=== PATIENT | male | born 2000 | race Caucasian/White ===

== ENCOUNTER 2024-01-05 16:07 | Emergency (ER) | payer BC, SELFPAY ==
--- NOTE | ~2024-01-05 | XR_ITS ---
EXAMINATION: XR CHEST CLINICAL INFORMATION: Chest pain, some COMPARISON: None available. TECHNIQUE: 2 views of the chest were obtained. FINDINGS: No significant abnormality is noted involving the heart, lungs, mediastinum, bony thorax or soft tissues. XR/XR chest 2V IMPRESSION: Unremarkable chest examination. Electronically signed by: Efren Thorne MD 01/05/2024 06:19 PM EDT RP
--- NOTE | 2024-01-05 16:08 | ECG_ITS ---
Test Reason : CHEST PAIN Blood Pressure : / mmHG Vent. Rate : 083 BPM Atrial Rate : 083 BPM P-R Int : 152 ms QRS Dur : 084 ms QT Int : 364 ms P-R-T Axes : 044 027 011 degrees QTc Int : 427 ms Normal sinus rhythm Normal ECG No previous ECGs available Referred By: Generic ED Physician Electronically Signed By:KITTY LUONG
[2024-01-05 16:14] VITALS: BP 141/86; PULSE 85; RESP 16; TEMP 36.9; O2SAT 99; BMI 37.7
--- NOTE | 2024-01-05 16:14 | ED_ITS ---
HPI - Chest Pain General Chief Complaint: Chest Pain Stated Complaint: chest pain Time Seen by Provider: 01/05/24 16:50 Source: patient Mode of arrival: ambulatory Limitations: no limitations History of Present Illness HPI narrative: Patient is a 23-year-old male who presents emergency department for evaluation of Chest pain described as ?a little bit of discomfort? with shortness of breath earlier today. Has had similar symptoms in the past earlier this year, he had very elevated blood pressure at that time. He is not on any antihypertensives. Pain currently localized to the substernal region described as a tightness with shortness of breath and dizziness, This episode started 1 - 1.5 hours ago. Denies recent URI symptoms, fevers, chills. Denies lower extremity swelling redness or pain. Denies history of VTE/malignancy. Related Data Allergies Allergy/AdvReac Type Severity Reaction Status Date / Time No Known Allergies Allergy Verified 01/05/24 16:16 [No Known Allergies*] Review of Systems 2 Review of Systems: Yes all other systems are reviewed and are negative PMFSH Past Medical History Attestation statement: The following information was validated with the patient. Source: old records reviewed Social History Social History Smoked in Last 30 Days: No Use of substances other than those prescribed or required for medical reasons: No Advance Directives: No Advance Directives Information Provided: No Do you have a plan to hurt others: No Plan Physical Exam 2 Vital Signs: Vital Signs: Last Vital Signs Temp 98.5 F 01/05/24 18:00 Pulse 76 01/05/24 18:00 Resp 20 01/05/24 18:00 BP 128/64 01/05/24 18:00 Pulse Ox 97 01/05/24 18:00 O2 Del Method Room Air 01/05/24 18:00 BMI result Body Mass Index 37.7 Appearance: Alert.?Oriented to person, place and time. No acute distress.?Normal affect. Eyes: Pupils equal, round and reactive to light.? ENT: Pharynx normal.?? Neck: Normal inspection.? Neck supple.?? CVS: Heart sounds normal. Normal heart rate and rhythm.? Pulses normal.?? Respiratory: No respiratory distress.? Lung sounds clear to auscultation bilaterally?? Abdomen: Soft and non-tender. Normoactive bowel sounds. ?? Skin: Skin warm and dry.? Normal skin color.? ?? Extremities: No lower extremity edema.? No calf ttp? Neuro: Moves all extremities spontaneously. Sensation intact bilaterally. CN II- XII intact. No focal neuro deficits. Ambulates with normal steady gait. Medications Administered Discontinued Medications Generic Name Dose Route Start Last Admin Trade Name Farrukh PRN Reason Stop Dose Admin Ketorolac Tromethamine 15 mg 01/05/24 17:07 01/05/24 17:18 Ketorolac Tromethamine 15 Mg/Ml Vial IM 01/05/24 17:08 15 mg ONCE ONE Administration Medical Decision Making Medical Decision Making [facility] Narrative: Patient is a 23-year-old male who presents emergency department for evaluation of chest pain with associated dizziness and shortness of breath as per HPI. Overall he appears well, nontoxic, afebrile. He is without tachycardia tachypnea or hypoxia. He is speaking clear full sentences. LS CTA. Pain is non reproducible, at this time has improved since its onset 60-90 minutes ago but remains present. Endorses a history of elevated blood pressure reading in the past but states he has not been formally diagnosed with hypertension and he is not prescribed any antihypertensives. Will obtain CBC to evaluate for leukocytosis/ anemia, CMP and lipase to evaluate for abnormal electrolytes /abnormal renal function/ abnormal hepatic/biliary function, EKG and troponin to evaluate for ischemia/ACS. Chest x-ray to evaluate for consolidation/ infiltrate/ mass/ pulmonary congestion and Urinalysis. Differential Diagnosis Differential Diagnoses: The differential diagnosis associated with the presentation includes (See narrative above) Admission/Observation Consideration of admission/observation: Escalation of care including admission/observation considered Lab Data [facility] Lab Attestation statement: I reviewed the patient's lab results. CBC is without leukocytosis anemia or thrombocytopenia. No electrolyte derangement. No SOURAV. LFTs and lipase within normal range. High sensitive troponin below detectable limits, EKG without acute ischemic findings unlikely ACS. Viral panel negative. D-dimer nondetectable, unlikely pulmonary embolism 01/05/24 16:23 01/05/24 16:23 Labs: Lab Results 01/05/24 Range/Units 16:23 WBC 9.3 (4.8-10.8) X10*3/uL RBC 5.54 (4.60-5.80) X10*6/uL Hgb 15.4 (14.0-18.0) g/dl Hct 44.5 (42.0-52.0) % MCV 80.3 (80.0-98.0) fL MCH 27.8 (27.0-33.0) pg MCHC 34.6 (31.0-36.0) g/dl RDW 14.1 (11.0-16.0) % Plt Count 354 (160-400) X10*3/uL MPV 9.7 (9.4-12.4) fL Immature Gran % (Auto) 0.3 (0.0-0.4) % Neut % (Auto) 69.9 (45-73) % Lymph % (Auto) 20.8 (20-40) % [place] % (Auto) 8.2 (2-11) % Eos % (Auto) 0.5 (0-4) % Baso % (Auto) 0.3 (0-2) % Lymph # (Auto) 1.9 (1.2-4.9) X10*3/uL [place] # (Auto) 0.8 (0.1-1.2) X10*3/uL Eos # (Auto) 0.1 (0.0-0.4) X10*3/uL Baso # (Auto) 0.0 (0.0-0.2) X10*3/uL Abs Immat Gran (auto) 0.03 (0.00-0.03) X10*3/uL Absolute Neuts (auto) 6.5 (2.0-8.3) x10*3/uL Absolute Nucleated RBC 0.000 (0.0-0.012) X10*3/uL Nucleated RBC % (auto) 0.0 (0.0-0.2) /100WBC PT 11.9 (11.1-13.3) SEC INR 1.0 (0.9-1.1) D-Dimer High Sensitivty < 150 NG/ML Sodium 142 (135-145) mmol/L Potassium 3.9 (3.3-5.1) mmol/L Chloride 106 (96-108) mmol/L Carbon Dioxide 27 (22-29) mmol/L Anion Gap 13 (12-20) BUN 10 (9-16) mg/dL Creatinine 0.95 (0.5-1.4) mg/dL Estim Creat Clear Calc 152.9 Estimated GFR > 60 Random Glucose 110 (60-115) mg/dL Calcium 10.0 (8.4-10.2) mg/dL Magnesium 2.0 (1.6-2.6) mg/dL Total Bilirubin 0.4 (0.0-1.0) mg/dL AST 24 (5-37) U/L ALT 46 H (0-40) U/L Alkaline Phosphatase 87 (39-117) U/L Troponin I High Sens < 2.7 (<3.5-35.0) ng/L Total Protein 7.4 (6.5-8.0) g/dL Albumin 4.6 (3.5-5.0) g/dL Lipase 15 (8-78) U/L Influenza Type A (PCR) NEGATIVE (Negative) Influenza Type B (PCR) NEGATIVE (Negative) RSV RNA Qual (PCR) NEGATIVE (Negative) SARS-CoV-2 RNA (RT-PCR) NEGATIVE (Negative) Independent Interpretation I performed an independent interpretation of an: EKG and Plain X-Ray (No infiltrate or consolidations) Interpretation: Rate: 83 Rhythm:? Normal sinus rhythm [place]:? Normal Normal P waves.? Normal KAPIL.?? Normal QRS complex.?? ST T wave :??No ST elevation, no ST depression, T-wave inversion lead III qTC: 427 prior studies:? No prior available for review The study has been interpreted contemporaneously by me. Radiology Impression Discussion of test interpretation with radiology: I have reviewed the radiologist's reading. Radiologist Impression: XR/XR chest 2V IMPRESSION: Unremarkable chest examination. External Record Review External record reviewed: Outpatient record Prescription Management I considered prescription management with: Pain Medication (Acetaminophen/ibuprofen) Discharge Plan Discharge Clinical Impression: Chest pain Patient Disposition: Home, Self-Care Instructions: Chest Pain (DC) Additional Instructions: You can take ibuprofen 200 mg, 3 tablets (600mg) every 6-8 hours as needed for pain, in addition to Tylenol 500 mg, 2 tablets (1,000mg) every 4-6 hours as needed for pain, but not to exceed 3 doses daily (3,000mg).? Follow-up with primary care doctor within 1-3 days. You may return back to emergency department any new or worsening symptoms or concerns. Print Language: Welsh
[2024-01-05 16:27] LABS: MANUAL DIFF FLAG NO
--- OUTSIDE RECORDS SUMMARY | 2024-01-05 16:27 | XMS_ITS | Continuity of Care Document ---
Author Organization [facility] Address [address] [place] [address]- Care Team Providers Care Housekeeper Name Role Phone Liu ISAACS, Suleiman Avila Primary Care Physician Encounter PSS Date(s): 10/10/19 - 10/17/19 [facility] [address] [place] [address]- [facility] Attending Physician: Sachi De León NP Allergies, Adverse Reactions, Alerts Substance Reaction Severity Status NKA Active Immunizations Given and Recorded Vaccine Date Status Refusal Reason Hepatitis A Pediatric Vaccine 10/10/19 Given Hepatitis A Pediatric Vaccine 10/07/18 Given meningococcal group B vaccine 1 10/07/18 Given meningococcal group B vaccine 2 10/04/17 Given Meningococcal Conjugate Vaccine 3 10/04/17 Given Meningococcal Conjugate Vaccine 4 09/04/12 Given Human Papillomavirus Vaccine 5 09/13/15 Given Human Papillomavirus Vaccine 6 08/17/14 Given tetanus/diphtheria/pertussis, acel(Tdap) 7 09/04/12 Given Varicella Virus Vaccine 08/01/05 Recorded Varicella Virus Vaccine 05/02/02 Recorded Measles/Mumps/Rubella Virus Vaccine 07/04/05 Recor ded Measles/Mumps/Rubella Virus Vaccine 05/02/02 Recor ded Poliovirus Vaccine, Inactivated 07/04/05 Recorded Poliovirus Vaccine, Inactivated 01 Recorded Poliovirus Vaccine, Inactivated 01 Recorded diphtheria/tetanus/pertussis, acel(DTaP) 07/04/05 Recorded diphtheria/tetanus/pertussis, acel(DTaP) 08/05/02 Recorded diphtheria/tetanus/pertussis, acel(DTaP) 03/21/02 Recorded diphtheria/tetanus/pertussis, acel(DTaP) 01 Recorded diphtheria/tetanus/pertussis, acel(DTaP) 01 Recorded pneumococcal 7-valent vaccine 05/02/02 Recorded pneumococcal 7-valent vaccine 03/21/02 Recorded pneumococcal 7-valent vaccine 01 Recorded haemophilus b conjugate (PRP-T) vaccine 05/02/02 R ecorded haemophilus b conjugate (PRP-T) vaccine 03/21/02 R ecorded haemophilus b conjugate (PRP-T) vaccine 01 R ecorded haemophilus b conjugate (PRP-T) vaccine 01 R ecorded hepatitis B pediatric vaccine 01 Recorded hepatitis B pediatric vaccine 01 Recorded hepatitis B pediatric vaccine 01 Recorded pneumococcal 13-valent vaccine 01 Recorded 1Result Comment: [id number] 05/2019 2Result Comment: [10/04/2017] Ordered by Jose Angel Vance MD 3Result Comment: [10/04/2017] Ordered by Jose Angel Vance MD 4Admin Note: VIS 02/17/11 GIVEN 5Result Comment: [09/13/2015] Ordered by Jose Angel Vance MD 6Result Comment: [08/17/2014] ordered by Jose Angel Vance M.D. 7Admin Note: VIS 05/30/11 given Vital Signs Most recent to oldest [Reference Range]: 1 Height 174.3 cm (10/10/19 9:46 AM) Weight 108.6 kg (10/10/19 9:46 AM) Pulse Rate [55-90 bpm] 80 bpm (10/10/19 9:46 AM) Body Mass Index [18.5-24.99] 35.75 *>HHI* (10/10/19 9:46 AM) Blood Pressure [71-110/30-71 mm Hg] 128/ 78mm Hg *H* (10/10/19 9:46 AM) Blood pressure sites Arm, left (10/10/19 9:46 AM) Dry Weight 108.6 kg (10/10/19 9:46 AM) Weight Obtained Via Standing scale (10/10/19 9:46 AM) Dry Weight Obtained Via Standing scale (10/10/19 9:46 AM) Social History Social History Type Response Smoking Status Never smoker; Tobacc o user in household: No entered on: 04/04/16 Sex
--- OUTSIDE RECORDS SUMMARY | 2024-01-05 16:27 | XMS_ITS | Continuity of Care Document ---
Author Organization [facility] [address] [place] [address]- Care Team Providers Care Poultry Culler Name Role Phone Liu ISAACS, Suleiman Avila Primary Care Physician [phone] Encounter PSS Date(s): 06/29/21 - 07/29/21 [facility] [address] [place] [address]- Attending Physician: Pinky ISAACS, Jose Angel Baldwin Allergies, Adverse Reactions, Alerts No Known Allergies Immunizations Given and Recorded Vaccine Date Status Refusal Reason SARS-CoV-2 (COVID-19) mRNA BNT-162b2 vac 06/30/20 Recorded SARS-CoV-2 (COVID-19) mRNA BNT-162b2 vac 06/09/20 Recorded Hepatitis A Pediatric Vaccine 10/10/19 Given Hepatitis [...] Vaccine, Inactivated 07/04/05 Recorded Poliovirus Vaccine, Inactivated 08/05/02 Recorded Poliovirus Vaccine, Inactivated 01 Recorded Poliovirus Vaccine, Inactivated 01 Recorded diphtheria/tetanus/pertussis, acel(DTaP) 07/04/05 Recorded diphtheria/tetanus/pertussis, acel(DTaP) 08/05/02 Recorded diphtheria/tetanus/pertussis, acel(DTaP) 03/21/02 Recorded diphtheria/tetanus/pertussis, acel(DTaP) 01 Recorded diphtheria/tetanus/pertussis, acel(DTaP) 01 Recorded Diphth/pertussis,acel/tetanus/polio 07/04/04 Recor ded pneumococcal 7-valent vaccine 05/02/02 Recorded pneumococcal 7-valent [...] pneumococcal 13-valent vaccine 01 Recorded 1Result Comment: [id number] 05/2019 2Result Comment: [10/04/2017] Ordered by Jose Angel Vance MD 3Result Comment: [10/04/2017] Ordered by Jose Angel Vance MD 4Admin Note: VIS 02/17/11 GIVEN 5Result Comment: [09/13/2015] Ordered by Jose Angel Vance MD 6Result Comment: [08/17/2014] ordered by Jose Angel Vance M.D. 7Admin Note: VIS 05/30/11 given Social History Social History Type Response Smoking Status Never smoker; Tobacc o user in household: No entered on: 04/04/16 Sex
--- OUTSIDE RECORDS SUMMARY | 2024-01-05 16:27 | XMS_ITS | Continuity of Care Document ---
Author Organization [facility] [address] [place] [address]- Care Team Providers Care Surgical Coder Name Role Phone Suleiman Hatfield MD Primary Care Physician Encounter PSS Date(s): 06/20/21 - 07/20/21 [facility] [place] [address] [place] [address]- Attending Physician: Suleiman Hatfield MD Allergies, Adverse Reactions, Alerts No Known Allergies [...] pneumococcal 13-valent vaccine 01 Recorded 1Result Comment: [id number] 05/2019 2Result Comment: [10/04/2017] Ordered by Jose [...]
[2024-01-05 16:28] LABS: Basophils Percent Auto 0.3 % (0-2); Eosinophils Absolute Auto 0.1 X10*3/uL (0.0-0.4); Eosinophils Percent Auto 0.5 % (0-4); Hematocrit 44.5 % (42.0-52.0); Hemoglobin 15.4 g/dl (14.0-18.0); Imm Gran Abs Auto 0.03 X10*3/uL (0.00-0.03); Imm Gran Pct Auto 0.3 % (0.0-0.4); Lymphocytes Absolute Auto 1.9 X10*3/uL (1.2-4.9); Lymphocytes Percent Auto 20.8 % (20-40); Mean Corpuscular HGB Conc 34.6 g/dl (31.0-36.0); Mean Corpuscular Hemoglobin 27.8 pg (27.0-33.0); Mean Corpuscular Volume 80.3 fL (80.0-98.0); Mean Platelet Volume 9.7 fL (9.4-12.4); Monocytes Absolute Auto 0.8 X10*3/uL (0.1-1.2); Monocytes Percent Auto 8.2 % (2-11); Neutrophils Absolute Auto 6.5 x10*3/uL (2.0-8.3); Neutrophils Percent Auto 69.9 % (45-73); Platelet Count 354 X10*3/uL (160-400); Red Blood Count 5.54 X10*6/uL (4.60-5.80); Red Cell Distribution Width 14.1 % (11.0-16.0); White Blood Count 9.3 X10*3/uL (4.8-10.8)
[2024-01-05 16:35] LABS: Prothrombin Time 11.9 SEC (11.1-13.3)
[2024-01-05 16:46] LABS: Alanine Aminotransferase 46 U/L (0-40); Albumin Level 4.6 g/dL (3.5-5.0); Alkaline Phosphatase 87 U/L (39-117); Anion Gap 13 (12-20); Aspartate Amino Transferase 24 U/L (5-37); Bilirubin Total 0.4 mg/dL (0.0-1.0); Blood Urea Nitrogen 10 mg/dL (9-16); Carbon Dioxide 27 mmol/L (22-29); Chloride 106 mmol/L (96-108); Creatinine Clr Calc Pharmacy 152.9; Estimated Glomerular Filt Rate > 60; Glucose Random 110 mg/dL (60-115); Lipase 15 U/L (8-78); Potassium 3.9 mmol/L (3.3-5.1); Sodium 142 mmol/L (135-145); Total Protein 7.4 g/dL (6.5-8.0)
[2024-01-05 16:54] LABS: Troponin-I High Sensitivity < 2.7 ng/L (<3.5-35.0)
[2024-01-05 17:07] LABS: Influenza A PCR NEGATIVE (Negative); Influenza B PCR NEGATIVE (Negative); Resp Syncy Virus RNA Qual PCR NEGATIVE (Negative); SARS COV2 PCR INHOUSE NEGATIVE (Negative)
[2024-01-05] MEDS: Ketorolac Tromethamine 15 MG/ML VIAL IM (17:18)
--- NOTE | 2024-01-05 17:21 | PC.NURSE ---
patient presents through external triage with cc of chest pain and shortness of breath that came on suddenly today. patient states the pain has since subsided and he rates it as a 3/10 but he got nervous when the pain wouldnt go away which prompted him to come in. patient VS WNL, denies any significant PMHx, denies any fevers chills, NVD or sick contacts. patient states the pain was substernal and did not radiate anywhere else, no pain to palpation. LSCTA, normoactive BS in all four quadrants, abdomen soft and non tender. patient medicated per JUL, returned from Xray. awaiting results at this time
[2024-01-05 17:32] LABS: D Dimer High Sensitivity < 150 NG/ML
[2024-01-05 18:00] VITALS: BP 128/64; PULSE 76; RESP 20; TEMP 36.9; O2SAT 97
[2024-01-05 18:35] VITALS: BP 128/64; PULSE 76; RESP 20; TEMP 36.9; O2SAT 97
== END 2024-01-05 18:38 | disposition home or self-care (01) ==
PROVIDERS: Nurse Practitioner Family; Emergency Provider Emergency Medicine Emergency Medical Services
DX: R07.9 Chest pain, unspecified (principal); R06.02 Shortness of breath; Z03.818 Encounter for observation for suspected exposure to other biological agents ruled out
CPT/HCPCS: 0241U; 36415; 71046; 80053; 83690; 83735; 84484; 85025; 85379; 85610; 93005; 96372; 99284; 99285; J1885

== ENCOUNTER 2024-02-25 15:00 | Emergency (ER) | payer OTHER, BC, SELFPAY ==
--- NOTE | ~2024-02-25 | XR_ITS ---
EXAMINATION: Left foot series. Left ankle series CLINICAL INFORMATION: Pain injury COMPARISON: X-ray left ankle June 2014 TECHNIQUE: 3 views of left foot and 2 additional views of the left ankle FINDINGS: Left ankle and foot: The bones joints and soft tissues are normal No fracture XR/XR foot LT min 3V IMPRESSION: Normal x-ray series of the left ankle and foot Electronically signed by: You Reyna MD 02/25/2024 04:58 PM EDT
--- NOTE | ~2024-02-25 | XR_ITS ---
EXAMINATION: Left foot series. Left ankle series CLINICAL INFORMATION: Pain injury COMPARISON: X-ray left ankle June 2014 TECHNIQUE: 3 views of left foot and 2 additional views of the left ankle FINDINGS: Left ankle and foot: The bones joints and soft tissues are normal No fracture XR/XR ankle LT min 3V IMPRESSION: Normal x-ray series of the left ankle and foot Electronically signed by: You Reyna MD 02/25/2024 04:58 PM EDT
[2024-02-25 15:13] VITALS: BP 132/68; PULSE 81; RESP 16; TEMP 36.5; O2SAT 97; BMI 36.1
--- NOTE | 2024-02-25 15:13 | ED.GENADULT ---
HPI - General Adult General Chief complaint: Extremity Injury, Lower Stated complaint: left foot inj Time Seen by Provider: 02/25/24 16:20 Source: patient Mode of arrival: ambulatory Limitations: no limitations History of Present Illness ED Provider: rudy [facility] narrative: Patient is a 23 yo male without significant PMH presents for left ankle and heel pain. 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 Denies any fall, no changes in ROM or sensation or temperature. States his pain was increasing since this am and he just wanted to make sure he didn't break anything. Denies numbness/tingling. Able to bear weight. complaint: left foot pain Onset (ago): hour(s) Location: left and lower extremity Radiation: non-radiation and extremity (ankle L) Exacerbating factors: movement Associated symptoms: denies other symptoms Treatments prior to arrival: none Related Data Allergies Allergy/AdvReac Type Severity Reaction Status Date / Time No Known Allergies Allergy Verified 02/25/24 15:14 [No Known Allergies*] Review of Systems Review of Systems: Yes all other systems are reviewed and are negative Constitutional: Constitutional: Reports as per [facility] Social History Social History Smoked in Last 30 Days: No Advance Directives: No Advance Directives Information Provided: No Physical Exam ED Vital Signs: Vital Signs - 24 hr 02/25/24 15:13 Temperature 97.7 F Pulse Rate 81 Respiratory Rate 16 Blood Pressure 132/68 Pulse Oximetry 97 Oxygen Delivery Method Room Air BMI result Body Mass Index 36.1 Appearance: Alert. Oriented X3. No acute distress. Head: normocephalic, atraumatic. Eyes: Pupils equal, round and reactive to light. ENT: Pharynx normal. No tonsillar swelling or exudate. Neck: Normal inspection. Neck supple. CVS: Normal heart rate and rhythm. Pulses normal. Respiratory: No respiratory distress. Breath sounds normal. Abdomen: Soft and nontender. +BS x4 Skin: Skin warm and dry. Normal skin color. Normal skin turgor. No rashes. Extremities: No lower extremity edema. No joint swelling. positive passive and active ROM, positive pedal and posterior tibial pulses, no achilles tenderness, negative Marina test Neuro/psych: Oriented X 3. No motor deficit. No sensory deficit. CN II-XII intact. Normal speech and cognition. Const General: cooperative, healthy appearing and no acute distress Orientation/consciousness: oriented to person, oriented to place, oriented to time and patient oriented x3 Limitations: no limitations HENMT Head: Yes normocephalic and Yes atraumatic Ears: external ears normal General nose exam: Normal external nose present Face and sinus: Yes face symmetric Mouth: oropharynx normal and moist mucous membranes Throat: Yes uvula midline Eyes Pupils: Equal, round and reactive pupils present Neck Neck: Yes normal visual inspection and Yes supple Resp Effort & Inspection: normal respiratory effort and able to speak in complete sentences Auscultation: clear to auscultation bilaterally Cardio Rate: regular rate Rhythm: regular rhythm Heart sounds: S1 normal heart sound present and S2 normal heart sound present GI Palpation (GI): Soft to palpation and nontender Auscultation: normoactive bowel sounds General: Yes no CVA tenderness Back/Spine/Pelvis Back: no CVA tenderness Skin General skin exam: elasticity normal and turgor normal Neuro General: oriented to person, oriented to place, oriented to time, patient oriented x3, moves all extremities, no focal motor deficits and CN's II-XI intact bilaterally Cranial nerves: Yes Equal, round and reactive pupils present Cognition (Neuro): normal cognition Extrem General: Yes full ROM, Yes no pedal edema and Yes no calf tenderness Right lower extremity: normal to inspection and normal capillary refill Left lower extremity: normal to inspection, normal capillary refill and ankle Details: normal to inspection, tenderness, no edema and normal ROM Psych Mental Status: mental status grossly normal Affect: normal affect Thought process: Normal thought process present Course Course Course Narrative: RME performed by Carli Vela PA-C. Patient is a 23 year old assigned male at presenting to the emergency department with left ankle and foot pain. Patient states that his left foot was run over by a large shipping container - on the heel side of his foot. Detailed physical exam and review of systems are deferred to the quantitative strategy analyst. Imaging ordered. Patient placed back in the waiting room pending room availability and results. Medical Decision Making Medical Decision Making MDM Narrative: Patient is a 23 yo male without significant PMH presents for left ankle and heel pain. On exam patient is awake, A+Ox3, VS WNL, afebrile, normal neurological exam without focal deficits, physical exam findings as above. Antalgic gait. ROM intact, without difficulty. CAP refill less than 3 seconds. strength 5/5. positive pedal and posterior tibial pulses. negative for edema. Given reported symptoms and physical exam findings, initial differential includes sprain/strain ankle, soft tissue injury, fracture. Do not suspect achilles injury as achilles is nontender, negative Marina test. X-rays left foot and ankle notable for no acute fracture. My interpretation is in agreement with the radiologist's interpretation. Patient updated on results and all questions answered. Castillo wrap applied in the ED with positive CMS prior to and after application of wrap. Advised patient keep foot elevated, apply ice, use Tylenol and ibuprofen. Weight-bearing as tolerated. Follow up with ortho for ongoing symptoms. Return precautions discussed at bedside. Patient verbalized understanding of and agreement with plan. Differential Diagnosis Differential Diagnoses: The differential diagnosis associated with the presentation includes sprain/strain ankle, soft tissue injury, avulsion, fracture Independent Interpretation I performed an independent interpretation of an: Plain X-Ray Interpretation: No acute fracture left foot or ankle Radiology Impression Discussion of test interpretation with radiology: I have reviewed the radiologist's reading. Radiologist Impression: XR/XR foot LT min 3V IMPRESSION: Normal x-ray series of the left ankle and foot External Record Review External record reviewed: Inpatient record, Office record and Outpatient record Discharge Plan Discharge Clinical Impression: Contusion of foot, left Qualifiers: Encounter type: initial encounter Qualified Code(s): S90.32XA - Contusion of left foot, initial encounter Patient Disposition: Home, Self-Care Instructions: Foot Contusion (ED), How to Use an Elastic Bandage (ED), R.I.C.E. Treatment (ED) Additional Instructions: You have been evaluated in the emergency department today for foot pain. Your evaluation did not find evidence of medical conditions requiring emergent intervention at this time. Your x-rays did not show any fractures. We have provided an CASTILLO wrap for you to use while your foot heals. Please rest, ice, and elevate your foot, and resume normal activities as tolerated. We recommend you take 600mg ibuprofen every 6 hours or 650mg Tylenol every 6 hours as needed for pain. If Needed you can alternate these medications as they take 1 medication every 3 hours. For instance at noon take ibuprofen, then at 3:00 p.m. take Tylenol, then at 6:00 p.m. take ibuprofen. Please schedule an appointment for follow-up with your primary care provider this week. Follow-up with orthopedics for any ongoing symptoms. Return to the emergency department if you experience worsening pain, numbness, tingling, change of color in your foot, or any other concerning symptoms. Referrals: [facility] [Provider Group] Stand Alone Forms: Work/School Release Print Language: Maltese
[2024-02-25 18:40] VITALS: BP 132/68; PULSE 81; RESP 16; TEMP 36.5; O2SAT 97
== END 2024-02-25 18:40 | disposition home or self-care (01) ==
PROVIDERS: Emergency Provider Emergency Medicine Emergency Medical Services
DX: S90.32XA Contusion of left foot, initial encounter (principal); W22.8XXA Striking against or struck by other objects, initial encounter; Y93.89 Activity, other specified; Y92.9 Unspecified place or not applicable; Y99.0 Civilian activity done for income or pay; M79.672 Pain in left foot; M25.572 Pain in left ankle and joints of left foot
CPT/HCPCS: 73610; 73630; 99283